=== PATIENT | female | born 1960 | race Hispanic/Latino ===

== ENCOUNTER 2020-01-07 23:30 | Emergency (ER) | payer SELFPAY ==
[2020-01-08] MEDS ORDERED: MORPHINE SULFATE 4 MG/1ML SYG ONE (00:30)
[2020-01-08] MEDS ORDERED: KETOROLAC TROMETHAMINE 30MG/ML ONE (01:25)
== END 2020-01-08 01:54 | disposition home or self-care (01) ==
LOC: EDH 23:30
DX: B02.9 Zoster without complications (principal); R10.12 Left upper quadrant pain; Z79.899 Other long term (current) drug therapy
CPT/HCPCS: 36415; 85025; 96372; 96374; 99284; J1885; J2270

== ENCOUNTER 2023-10-13 22:58 | Emergency (ER) | payer OTHER, SELFPAY ==
[~2023-10-13] VITALS: Ht 154.9 cm; Wt 70.8 kg
[2023-10-14] MEDS: DIAZEPAM 2 MG TAB PO ONE (00:29)
[2023-10-14] MEDS ORDERED: IBUP-2077 PO (00:33)
[2023-10-14] MEDS ORDERED: CYCL7.5T27 PO (00:33)
== END 2023-10-14 01:57 | disposition home or self-care (01) ==
LOC: EDH 22:58
DX: M62.830 Muscle spasm of back (principal); M54.50 Low back pain, unspecified; E03.9 Hypothyroidism, unspecified; Z79.899 Other long term (current) drug therapy; V89.2XXA Person injured in unspecified motor-vehicle accident, traffic, initial encounter; Y93.I9 Activity, other involving external motion; Y92.488 Other paved roadways as the place of occurrence of the external cause; Y99.8 Other external cause status
CPT/HCPCS: 72100